=== PATIENT | male | born 1950 | race Two or more races ===

== ENCOUNTER 2017-07-28 08:32 | Emergency (ER) | payer MEDICAID, OTHER ==
[~2017-07-28] VITALS: Ht 175.3 cm; Wt 74.8 kg
[~2017-07-28 08:32] MED LIST: ALFU10TA12 PO; ASPI81TA27 PO; ATOR1TAB PO; BUPR100T14 PO; CLOP75TA41 PO; GABA100C9 PO; LORA-154 PO; METF-371 PO; METO-158 PO; TAMS0.4C36 PO; [UNRECOGNIZED DRUG - CODE] PO
[2017-07-28 10:22] LABS: Basophils # (auto) 0.1 uL; Basophils % (auto) 0.5 % (0.0-2.0); Eosinophils # (auto) 0.2 uL; Eosinophils % (auto) 1.6 % (0.0-7.0); Hematocrit 42.7 % (41.0-53.0); Hemoglobin 14.4 g/dL (13.5-17.5); Lymphocytes # (auto) 1.2 uL; Lymphocytes % (auto) 8.9 % (10.0-50.0); Mean Corpuscular Hemoglobin 27.6 pg (28.0-32.0); Mean Corpuscular Hgb Conc. 33.8 g/dL (32.0-36.0); Mean Corpuscular Volume 81.7 fL (80.0-100.0); Monocytes % (auto) 7.5 % (0.0-12.0); Neutrophils # (auto) 10.7 uL; Neutrophils % (auto) 81.5 % (37.0-80.0); Nucleated Red Blood Cells % 0.1 %; Platelet Count (auto) 238 10^3/uL (140-450); Red Blood Cells 5.22 10^6/uL (4.5-5.90); Red Cell Distribution Width 14.8 % (11.8-14.3); White Blood Cell 13.1 10^3/uL (4.4-10.8)
[2017-07-28 10:40] LABS: Albumin 3.5 g/dL (3.4-5.0); BUN/Creatinine Ratio 11.2; Bilirubin, Total 0.6 mg/dL (0.2-1.0); Calcium 9.3 mg/dL (8.5-10.1); Potassium 4.4 mmol/L (3.5-5.1); Total Protein 8.1 g/dL (6.4-8.2)
[2017-07-28 12:37] VITALS: BP 160/76
== END 2017-07-28 12:42 | disposition home or self-care (01) ==
LOC: ER 08:32 → EDBD 08:32 → ER 12:42
DX: R07.89 Other chest pain (principal); I10 Essential (primary) hypertension; I25.10 Atherosclerotic heart disease of native coronary artery without angina pectoris; E11.9 Type 2 diabetes mellitus without complications; I25.2 Old myocardial infarction; E78.5 Hyperlipidemia, unspecified; Z86.73 Personal history of transient ischemic attack (TIA), and cerebral infarction without residual deficits; Z79.82 Long term (current) use of aspirin
CPT/HCPCS: 36415; 71046; 80053; 82962; 84484; 85025; 93005

== ENCOUNTER 2017-08-28 18:26 | Inpatient (IN) | payer OTHER ==
[~2017-08-28] VITALS: Ht 175.3 cm; Wt 81.2 kg
[2017-08-28 19:44] LABS: Basophils # (auto) 0.1 uL; Basophils % (auto) 0.7 % (0.0-2.0); Eosinophils # (auto) 0 uL; Eosinophils % (auto) 0.1 % (0.0-7.0); Hematocrit 46.1 % (41.0-53.0); Hemoglobin 15.8 g/dL (13.5-17.5); Lymphocytes % (auto) 6.5 % (10.0-50.0); Mean Corpuscular Hemoglobin 27.4 pg (28.0-32.0); Mean Corpuscular Hgb Conc. 34.4 g/dL (32.0-36.0); Mean Corpuscular Volume 79.9 fL (80.0-100.0); Monocytes # (auto) 1.4 uL; Monocytes % (auto) 9.2 % (0.0-12.0); Neutrophils % (auto) 83.5 % (37.0-80.0); Nucleated Red Blood Cells % 0.4 %; Platelet Count (auto) 218 10^3/uL (140-450); Red Blood Cells 5.77 10^6/uL (4.5-5.90); Red Cell Distribution Width 15.3 % (11.8-14.3); White Blood Cell 15.6 10^3/uL (4.4-10.8)
[2017-08-28 19:57] LABS: Alanine Aminotransferase 13 U/L (16-61); Albumin 3.6 g/dL (3.4-5.0); Alkaline Phosphatase 130 U/L (45-117); Anion Gap 12 (5-15); Aspartate Aminotransferase 12 U/L (15-37); BUN/Creatinine Ratio 11.7; Blood Urea Nitrogen 16 mg/dL (7-18); Calcium 9.2 mg/dL (8.5-10.1); Carbon Dioxide 23 mmol/L (21-32); Chloride 97 mmol/L (98-107); GFR African American 67 mL/min; GFR Non-African American 55 mL/min; Glucose 187 mg/dL (74-106); Magnesium 1.9 mg/dL (1.6-2.6); Potassium 3.8 mmol/L (3.5-5.1); Sodium 132 mmol/L (136-145); Total Protein 8.7 g/dL (6.4-8.2)
[2017-08-28] MEDS ORDERED: MORPHINE SULFATE 4 MG/ML SYR/VIAL IV ONE (20:00)
[2017-08-28] MEDS ORDERED: ASPirin 81 mg TAB PO ONE (20:00)
[2017-08-28] MEDS ORDERED: ONDANSETRON HCL 4 MG/2 ML VIAL IV ONE (20:00)
[2017-08-28] MEDS ORDERED: NITROGLYCERIN 2% OINT 1GM PKG TD ONE (20:00)
[2017-08-28 20:34] LABS: INR 1.02 (0.9-1.15); Partial Thromboplastin Time 32.9 sec (22.64-33.71); Prothrombin Time 11.1 sec (9.37-12.3)
[2017-08-29] MEDS ORDERED: cloNIDine HCL 0.1 MG TAB PO ONE
[2017-08-29] MEDS ORDERED: FUROSEMIDE 20 MG/2 ML VIAL IV ONE (01:30)
[2017-08-29] MEDS ORDERED: MORPHINE SULFATE 4 MG/ML SYR/VIAL IV PRN (02:45)
[2017-08-29] MEDS ORDERED: DOCUSATE SOD 100 MG CAP PO PRN (02:45)
[2017-08-29] MEDS ORDERED: TEMAZEPAM 15 MG CAP PO PRN (02:45)
[2017-08-29] MEDS ORDERED: cefTRIAXone 1GM/10ml IVPUSH 10 ML IV ONE (02:45)
[2017-08-29] MEDS ORDERED: NITROGLYCERIN 0.4 MG SL TAB SL PRN (02:45)
[2017-08-29] MEDS ORDERED: DEXTROSE (50%) 50ML SYRG IV PRN (02:45)
[2017-08-29] MEDS ORDERED: ONDANSETRON HCL 4 MG/2 ML VIAL IV PRN (02:45)
[2017-08-29] MEDS ORDERED: ACETAMINOPHEN 325 MG TAB PO PRN (02:45)
[2017-08-29] MEDS ORDERED: HYDROcodone-ACET 5/325MG TAB PO PRN (02:45)
[2017-08-29] MEDS ORDERED: IOHEXOL 350 MG/ML 100ML IJ ONE (02:54)
[2017-08-29 03:28] VITALS: BP 117/77
[2017-08-29] MEDS: GABAPENTIN 100 MG CAP PO SCH ×2 (05:50→15:22)
[2017-08-29] MEDS: ACCU-CHEK COMFORT CURVE STRIP VI SCH ×3 (05:50→18:23)
[2017-08-29] MEDS: InsuLIN REG 1unit/0.01ml Soln (100units/ml) SC SCH ×3 (06:09→18:25)
[2017-08-29 08:00] VITALS: BP 109/80
[2017-08-29 09:00] VITALS: BP 109/80
[2017-08-29] MEDS ORDERED: CLOPIDOGREL BISULFATE 75 MG TAB PO SCH (10:00)
[2017-08-29] MEDS ORDERED: FAMOTIDINE 20 MG TAB PO SCH (10:00)
[2017-08-29] MEDS ORDERED: buPROPion HCL 75 MG TAB PO SCH (10:00)
[2017-08-29] MEDS ORDERED: METOPROLOL TARTRATE 50 MG TAB PO SCH (10:00)
[2017-08-29] MEDS ORDERED: ENOXAPARIN SOD 40 MG/0.4 ML SYRINGE SC SCH (10:00)
[2017-08-29] MEDS ORDERED: ASPirin 81 mg TAB PO SCH (10:00)
[2017-08-29 10:52] VITALS: BP 109/80
[2017-08-29 13:00] VITALS: BP 99/71
[2017-08-29 16:29] VITALS: BP 111/76
[2017-08-29] MEDS ORDERED: TAMSULOSIN HYDROCHLORIDE 0.4 MG CAP PO SCH (18:00)
[2017-08-29] MEDS ORDERED: cefTRIAXone 1GM/10ml IVPUSH 10 ML IV SCH (22:00)
[2017-08-29] MEDS ORDERED: ATORVASTATIN 20 MG TAB PO SCH (22:00)
== END 2017-08-29 20:15 | disposition home health service (06) | DRG 205 ==
LOC: EDBD 18:26 → EDUNIT# 18:26 → ER 18:26 → TELE 18:27 → TELE-CENTR 08-29 03:25
PROVIDERS: ADMIT Nurse Practitioner; ATTEND Internal Medicine
DX: M94.0 Chondrocostal junction syndrome [Tietze] (principal); I50.31 Acute diastolic (congestive) heart failure; E11.40 Type 2 diabetes mellitus with diabetic neuropathy, unspecified; I11.0 Hypertensive heart disease with heart failure; I25.2 Old myocardial infarction; D72.829 Elevated white blood cell count, unspecified; E78.5 Hyperlipidemia, unspecified; G47.00 Insomnia, unspecified; K59.00 Constipation, unspecified; N40.0 Benign prostatic hyperplasia without lower urinary tract symptoms; F41.9 Anxiety disorder, unspecified; F32.9 Major depressive disorder, single episode, unspecified; I25.10 Atherosclerotic heart disease of native coronary artery without angina pectoris; R79.1 Abnormal coagulation profile; Z82.49 Family history of ischemic heart disease and other diseases of the circulatory system; Z86.73 Personal history of transient ischemic attack (TIA), and cerebral infarction without residual deficits; Z95.5 Presence of coronary angioplasty implant and graft; Z79.899 Other long term (current) drug therapy; Z79.82 Long term (current) use of aspirin
CPT/HCPCS: 36415; 71045; 71275; 80053; 82962; 83605; 83735; 83880; 84443; 84484; 85025; 85379; 85610; 85730; 87040; 93005; 93306; 94761; 96374; 96375; J1815; J2405

== ENCOUNTER 2017-08-30 12:10 | Inpatient (IN) | payer OTHER ==
[~2017-08-30] VITALS: Ht 175.3 cm; Wt 74.0 kg
[2017-08-30 13:02] LABS: Basophils # (auto) 0.1 uL; Basophils % (auto) 0.7 % (0.0-2.0); Eosinophils # (auto) 0 uL; Eosinophils % (auto) 0.2 % (0.0-7.0); Hematocrit 44.4 % (41.0-53.0); Hemoglobin 14.9 g/dL (13.5-17.5); Lymphocytes # (auto) 0.7 uL; Mean Corpuscular Hemoglobin 27.3 pg (28.0-32.0); Mean Corpuscular Hgb Conc. 33.6 g/dL (32.0-36.0); Mean Corpuscular Volume 81.4 fL (80.0-100.0); Monocytes % (auto) 6.7 % (0.0-12.0); Neutrophils # (auto) 12.8 uL; Neutrophils % (auto) 87.4 % (37.0-80.0); Nucleated Red Blood Cells % 0.1 %; Platelet Count (auto) 210 10^3/uL (140-450); Red Blood Cells 5.45 10^6/uL (4.5-5.90); Red Cell Distribution Width 15.2 % (11.8-14.3); White Blood Cell 14.6 10^3/uL (4.4-10.8)
[2017-08-30 13:27] LABS: Alanine Aminotransferase 15 U/L (16-61); Albumin 3.3 g/dL (3.4-5.0); Alkaline Phosphatase 136 U/L (45-117); Anion Gap 9 (5-15); Aspartate Aminotransferase 13 U/L (15-37); BUN/Creatinine Ratio 18.7; Bilirubin, Total 0.8 mg/dL (0.2-1.0); Blood Urea Nitrogen 25 mg/dL (7-18); Calcium 8.8 mg/dL (8.5-10.1); Carbon Dioxide 27 mmol/L (21-32); Chloride 94 mmol/L (98-107); GFR African American 69 mL/min; GFR Non-African American 57 mL/min; Glucose 296 mg/dL (74-106); Potassium 4.1 mmol/L (3.5-5.1); Sodium 130 mmol/L (136-145); Total Protein 8.6 g/dL (6.4-8.2)
[2017-08-30] MEDS ORDERED: AZITHROMYCIN 500MG/ 250ML 250 ML IV ONE (18:15)
[2017-08-30] MEDS ORDERED: cefTRIAXone 1GM/10ml IVPUSH 10 ML IV ONE (18:15)
[2017-08-30] MEDS ORDERED: SODIUM CHLORIDE 0.9% 1,000 ML IV SCH (21:25)
[2017-08-30] MEDS ORDERED: ONDANSETRON HCL 4 MG/2 ML VIAL IV PRN (21:30)
[2017-08-30] MEDS ORDERED: HYDROcodone-ACET 5/325MG TAB PO PRN (21:30)
[2017-08-30] MEDS ORDERED: MORPHINE SULFATE 4 MG/ML SYR/VIAL IV PRN (21:30)
[2017-08-30] MEDS ORDERED: NITROGLYCERIN 0.4 MG SL TAB SL PRN (21:30)
[2017-08-30] MEDS ORDERED: ACETAMINOPHEN 325 MG TAB PO PRN (21:30)
[2017-08-30] MEDS ORDERED: cloNIDine HCL 0.1 MG TAB PO PRN (21:30)
[2017-08-30] MEDS ORDERED: TEMAZEPAM 15 MG CAP PO PRN (21:30)
[2017-08-30] MEDS ORDERED: DEXTROSE (50%) 50ML SYRG IV PRN (21:30)
[2017-08-30] MEDS ORDERED: cloNIDine HCL 0.1 MG TAB PO ONE (21:30)
[2017-08-30] MEDS ORDERED: ATORVASTATIN 20 MG TAB PO SCH (22:00)
[2017-08-30 22:03] LABS: Alcohol, Urine < 3.0 mg/dL (0-5); Amphetamine Screen, Urine NEGATIVE (NEGATIVE); Barbiturate Scree,Urine NEGATIVE (NEGATIVE); Benzodiazephine Screen, Urine NEGATIVE (NEGATIVE); Cannabinoid Screen, Urine POSITIVE (NEGATIVE); Cocaine Screen, Urine NEGATIVE (NEGATIVE); Opiate Scree,Urine NEGATIVE (NEGATIVE); Phencyclidine Screen, Urine NEGATIVE (NEGATIVE)
[2017-08-30 22:04] LABS: Urine Bacteria NONE SEEN /hpf (None Seen); Urine Blood 1+ /uL (Negative); Urine Mucus FEW (None Seen); Urine Specific Gravity 1.021 (1.001-1.035); Urine Sperm PRESENT /hpf (None Seen); Urine WBC 1 /hpf (0 - 3)
[2017-08-30] MEDS: METOPROLOL TARTRATE 50 MG TAB PO SCH (22:22)
[2017-08-30] MEDS: FAMOTIDINE 20 MG TAB PO SCH (22:23)
[2017-08-30] MEDS: ACCU-CHEK COMFORT CURVE STRIP VI SCH (23:59)
[2017-08-30] MEDS: InsuLIN REG 1unit/0.01ml Soln (100units/ml) SC SCH (23:59)
[2017-08-31 02:45] VITALS: BP 177/75
[2017-08-31 04:51] VITALS: BP 161/86
[2017-08-31] MEDS: InsuLIN REG 1unit/0.01ml Soln (100units/ml) SC SCH ×2 (06:59→11:30)
[2017-08-31] MEDS: ACCU-CHEK COMFORT CURVE STRIP VI SCH ×2 (07:00→12:29)
[2017-08-31 07:35] LABS: Basophils # (auto) 0.1 uL; Basophils % (auto) 0.5 % (0.0-2.0); Eosinophils # (auto) 0 uL; Eosinophils % (auto) 0.1 % (0.0-7.0); Hematocrit 41.8 % (41.0-53.0); Hemoglobin 14.4 g/dL (13.5-17.5); Lymphocytes # (auto) 1.1 uL; Lymphocytes % (auto) 5.9 % (10.0-50.0); Mean Corpuscular Hemoglobin 27.4 pg (28.0-32.0); Mean Corpuscular Hgb Conc. 34.4 g/dL (32.0-36.0); Mean Corpuscular Volume 79.5 fL (80.0-100.0); Monocytes # (auto) 1.5 uL; Monocytes % (auto) 8.2 % (0.0-12.0); Neutrophils # (auto) 15.2 uL; Neutrophils % (auto) 85.3 % (37.0-80.0); Platelet Count (auto) 240 10^3/uL (140-450); Red Blood Cells 5.26 10^6/uL (4.5-5.90); Red Cell Distribution Width 14.9 % (11.8-14.3); White Blood Cell 17.9 10^3/uL (4.4-10.8)
[2017-08-31 07:51] LABS: Albumin 3.3 g/dL (3.4-5.0); Calcium 9.8 mg/dL (8.5-10.1); Potassium 4.2 mmol/L (3.5-5.1)
[2017-08-31 07:53] LABS: Bilirubin, Total 0.8 mg/dL (0.2-1.0); Total Protein 8.2 g/dL (6.4-8.2)
[2017-08-31] MEDS ORDERED: cefTRIAXone 1GM/10ml IVPUSH 10 ML IV SCH (09:00)
[2017-08-31] MEDS ORDERED: ASPirin 81 mg TAB PO SCH (10:00)
[2017-08-31] MEDS ORDERED: CLOPIDOGREL BISULFATE 75 MG TAB PO SCH (10:00)
[2017-08-31] MEDS ORDERED: ENOXAPARIN SOD 40 MG/0.4 ML SYRINGE SC SCH (10:00)
[2017-08-31] MEDS: METOPROLOL TARTRATE 50 MG TAB PO SCH (10:07)
[2017-08-31] MEDS: FAMOTIDINE 20 MG TAB PO SCH (10:07)
[2017-08-31 11:39] VITALS: BP 141/74
== END 2017-08-31 14:02 | disposition home health service (06) | DRG 313 ==
LOC: EDBD 12:10 → ER 12:10 → TELE 12:11 → WEST WING 23:16 → TELE 08-31 00:20 → TELE-CENTR 08-31 01:50
PROVIDERS: ADMIT Nurse Practitioner; ATTEND Internal Medicine
DX: R07.89 Other chest pain (principal); I24.9 Acute ischemic heart disease, unspecified; E87.1 Hypo-osmolality and hyponatremia; Z95.5 Presence of coronary angioplasty implant and graft; E11.9 Type 2 diabetes mellitus without complications; E78.5 Hyperlipidemia, unspecified; I10 Essential (primary) hypertension; F32.9 Major depressive disorder, single episode, unspecified; I25.10 Atherosclerotic heart disease of native coronary artery without angina pectoris; Z82.49 Family history of ischemic heart disease and other diseases of the circulatory system; Z90.49 Acquired absence of other specified parts of digestive tract; I25.2 Old myocardial infarction; Z79.899 Other long term (current) drug therapy; Z79.82 Long term (current) use of aspirin
CPT/HCPCS: 36415; 71046; 80053; 80307; 81001; 82962; 83605; 84484; 85025; 87040; 87081; 93005; 96365; 96366; 96375; J1815